=== PATIENT | male | born 1940 | race Caucasian/White ===

== ENCOUNTER → 2024-06-10 13:01 | Outpatient (REF) | payer MEDICARE, OTHER, SELFPAY | LOC: HWRAD 13:01 | PROVIDERS: ATTENDING PHYSICIAN Podiatrist Foot & Ankle Surgery; FAMILY PHYSICIAN Family Medicine Geriatric Medicine | DX: S90.212S Contusion of left great toe with damage to nail, sequela (principal) | CPT/HCPCS: 73630 ==